=== PATIENT | male | born 1985 | race Caucasian/White ===

== ENCOUNTER → 2022-08-15 | Outpatient (CLI) | payer MEDICAID, SELFPAY ==
[2022-08-15 11:39] LABS: Vitamin D,25 Hydroxy 96.6 ng/mL
== END | disposition home or self-care (01) ==
PROVIDERS: PCP Nurse Practitioner Family; Referring Provider Nurse Practitioner Family; Visit Provider Nurse Practitioner Family
DX: E55.9 Vitamin D deficiency, unspecified (principal)
CPT/HCPCS: 36415; 82306